=== PATIENT | female | born 1975 | race Caucasian/White ===

== ENCOUNTER 2017-01-13 14:17 | Emergency (ER) | payer OTHER ==
[~2017-01-13] VITALS: Ht 170.2 cm; Wt 85.2 kg
[~2017-01-13 14:17] MED LIST: MTR600X PO; OXYC5TAB PO
[2017-01-13 14:22] VITALS: TEMP 36.7; Ht 170.2 cm; Wt 85.2 kg
--- NOTE | 2017-01-13 15:50 | DIAGNOSTIC IMAGING REPORT ---
CHEST ONE VIEW PORTABLE CLINICAL HISTORY: Atypical chest pain COMPARISON STUDY: No previous studies for comparison. FINDINGS: The cardiac and mediastinal contours are normal. There is no evidence of focal pulmonary consolidation. There is no evidence of failure. No pleural effusions are visualized.[ There are minimal right basilar atelectatic changes. IMPRESSION: No active disease in the chest. Electronically signed by: Tylor Delgado M.D. 01/13/2017 3:48 PM Dictated Date/Time: 01/13/2017 3:48 PM
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
[2017-01-13 16:03] VITALS: O2SAT 96
[2017-01-13 16:18] LABS: BASO % 0.9 %; BASO ABS # 0.06 K/uL (0-0.2); COMPLETE YES; EOS % 3.4 %; HEMATOCRIT 45.6 % (37-47); IG% 0.1 %; LYMPH % 30.5 %; LYMPH ABS # 2.13 K/uL (1.2-3.4); MEAN CELL VOLUME 87.4 fL (80-100); MEAN CORPUSCULAR HEMOGLOBIN 30.8 pg (25-34); MEAN CORPUSCULAR HGB CONC 35.3 g/dl (32-36); MEAN PLATELET VOLUME 9.7 fL (7.4-10.4); MONO % 6.9 %; NEUT % 58.2 %; PLATELET COUNT 296 K/uL (130-400); RED BLOOD COUNT 5.22 M/uL (4.2-5.4); WHITE BLOOD COUNT 6.98 K/uL (4.8-10.8)
[2017-01-13 16:19] LABS: ISTAT CREATININE 0.7 mg/dl (0.6-1.3); ISTAT IONIZED CALCIUM 1.19 mmol/l (1.12-1.32)
[2017-01-13 16:50] LABS: ALT/SGPT 28 U/L (12-78); AST/SGOT 13 U/L (15-37); BLOOD UREA NITROGEN 12 mg/dl (7-18); CALCIUM 8.8 mg/dl (8.5-10.1); CARBON DIOXIDE 29 mmol/L (21-32); CHLORIDE 107 mmol/L (98-107); CREATININE 0.75 mg/dl (0.60-1.20); GLUCOSE 76 mg/dl (70-99); POTASSIUM 3.8 mmol/L (3.5-5.1); SODIUM 141 mmol/L (136-145)
[2017-01-13 16:55] LABS: ALKALINE PHOSPHATASE 81 U/L (45-117); CKMB/CK RATIO 1.2 (0-3.0)
[2017-01-13 17:25] VITALS: BP 141/93; PULSE 57; O2SAT 98
== END 2017-01-13 17:50 | disposition home or self-care (01) ==
LOC: C.EDB 14:18 → C.EDC 17:50
DX: I15.9 Secondary hypertension, unspecified (principal); R00.2 Palpitations; Z90.710 Acquired absence of both cervix and uterus

== ENCOUNTER → 2017-01-16 | Outpatient (CLI) | payer OTHER ==
[2017-01-16 12:32] LABS: MAGNESIUM 2.4 mg/dl (1.8-2.4); THYROID STIMULATING HORMONE 2.75 uIu/ml (0.300-4.500)
== END | disposition home or self-care (01) ==
LOC: C.LAB 10:20
PROVIDERS: ATTEND Physician Assistant
DX: R00.2 Palpitations (principal)

== ENCOUNTER 2018-01-09 16:00 | Emergency (ER) | payer OTHER ==
[~2018-01-09] VITALS: Ht 170.2 cm; Wt 85.0 kg
[2018-01-09 16:15] VITALS: TEMP 36.9; Ht 170.2 cm; Wt 85.0 kg
[2018-01-09] MEDS ORDERED: DiphenhydrAMINE HCL 50 MG/ML VIAL IV STA (17:45)
[2018-01-09] MEDS ORDERED: SODIUM CHLORIDE 0.9% 1000ML 2,000 ML IV STA (17:45)
[2018-01-09] MEDS ORDERED: METOCLOPRAMIDE HCL INJ 5 MG/ML 2 ML VIAL IV STA (17:45)
--- NOTE | 2018-01-09 17:55 | EMERGENCY ROOM VISIT NOTE ---
History Report prepared by Fabiola: Mayte Connell Under the Supervision of: Dr. Donavan Mehta M.D. 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 She reports she went to the chiropractor who adjusted her neck and she felt the headache "instantly. " She reports her headache moves" and yesterday the quality was pressure and throbbing, and today it is stabbing. She also notes she has been having vertigo episodes for the past 2 months. She reports her episodes come very suddenly and last only 1 minute. She states she has had a sinus pressure for the past month which is why she went to the chiropractor. She also states that her and her friends tried the Apley maneuver which alleviated her vertigo episodes but worsened her headache. She denies any urinary symptoms, nausea, vomiting, or chest pain. The patient also states that she has been having difficulty focusing and Dr. Serrano noticed a droop in her left eye. 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 Review of Systems See HPI for pertinent positives and negatives. A total of ten systems were reviewed and were otherwise negative. Past Medical & Surgical Medical Problems: (1) hysterectomy (2) Right shoulder pain Family History Patient reports no known family medical history. Social History Smoking Status: Never Smoker Marital Status: single Housing Status: lives with family Occupation Status: employed Current/Historical Medications Scheduled Acetaminophen (Tylenol), 1,000 MG PO UD Aspirin (Aspirin 81 Low Dose), 1 TAB PO DAILY Fluticasone Propionate (Nasal) (Flonase Allergy Relief), 2 SPRAYS SERGIO UD Allergies Coded Allergies: NO KNOWN DRUG ALLERGIES (Unverified Allergy, Unknown, NONE, 01/09/18) Shellfish Allergy (Unverified Allergy, Unknown, ANAPHYLACTIC, 01/09/18) Physical Exam Vital Signs Date Time Temp Pulse Resp B/P (MAP) Pulse Ox O2 Delivery O2 Flow Rate FiO2 01/09/18 22:09 75 16 132/76 98 01/09/18 20:03 65 16 134/72 97 Room Air 01/09/18 18:50 72 15 141/86 97 Room Air 01/09/18 16:15 36.9 59 20 145/85 98 Room Air Physical Exam GENERAL: Awake, alert, well-appearing, in no distress HENT: Normocephalic, atraumatic. Dry mucus membranes. EYES: Normal conjunctiva. Sclera non-icteric. NECK: Supple. No nuchal rigidity. FROM. No JVD. RESPIRATORY: Clear to auscultation. CARDIAC: Regular rate, normal rhythm. Extremities warm and well perfused. Pulses equal. ABDOMEN: Soft, non-distended. No tenderness to palpation. No rebound or guarding. No masses. RECTAL: Deferred. MUSCULOSKELETAL: Chest examination reveals no tenderness. The back is symmetrical on inspection without obvious abnormality. There is no CVA tenderness to palpation. No joint edema. LOWER EXTREMITIES: Calves are equal size bilaterally and non-tender. No edema. No discoloration. NEURO: Normal sensorium. No sensory or motor deficits noted. Normal cerebellar function with [id number], alternating palms, [id number] SKIN: No rash or jaundice noted. Medical Decision & Procedures ER Provider Diagnostic Interpretation: Radiology results as stated below per my review and radiologist interpretation: ANGIOGRAPHY HEAD COMBO HISTORY: Post trauma post chiropractic manipulation TECHNIQUE: Multiaxial CT images of the head were performed both before and after the intravenous administration of contrast to evaluate the major cerebral vessels. Maximum intensity projection images were also obtained. A dose lowering technique was utilized adhering to the principles of ALARA. COMPARISON: None. FINDINGS: There is no mass, hematoma, midline shift, or acute infarct. Visualized intracranial internal carotid arteries, distal vertebral arteries, and basilar artery are widely patent. 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 IMPRESSION: No significant stenosis, occlusion, or aneurysm within the [place]. Negative CT of the brain The above report was generated using voice recognition software. It may contain grammatical, syntax or spelling errors. Electronically signed by: El Moore M.D. 01/09/2018 7:59 PM ORIGINAL REPORT NECK ANGIO WITH CONTRAST HISTORY: Trauma mental status change TECHNIQUE: Multiaxial CT images of the neck were performed following the intravenous administration of contrast to evaluate the major cervical vessels. Maximum intensity projection images were also obtained. All measurements were calculated based on NASCET criteria. A dose lowering technique was utilized adhering to the principles of ALARA. COMPARISON STUDY: None. FINDINGS: The aortic arch and proximal great vessels are widely patent. There is no significant stenosis, occlusion, or dissection identified within the bilateral common carotid, internal carotid, or vertebral arteries. Mild reversal of the normal cervical curvature suggestive of muscular spasm. Moderate degenerative disc change C5-C6. IMPRESSION: No significant stenosis, occlusion, or dissection identified within the carotid or vertebral arteries. Degenerative disc change C5-C6 of the cervical spine. The above report was generated using voice recognition software. It may contain grammatical, syntax or spelling errors. Electronically signed by: El Moore M.D. 01/09/2018 7:56 PM ADDENDUM Addendum: Following consultation with Dr. Serrano, possibility of a small short segment flow irregularities of the internal carotid arteries on the left as well as right is noted on transaxial images 149 and 150 as well as 151 the left. This is also seen subtly on the right image 153.148, and 147.. Diagnostic considerations include a very shows a small bilateral short segment dissections versus of flow artifact secondary to laminar flow defects. Appropriate prophylactic treatment is suggested with a repeat scan recommended in approximately 2 days as follow-up. This addended report was phoned to Dr. mehta in the emergency room at 8:45 PM. Electronically signed by: El Moore M.D. 01/09/2018 8:59 PM Dictated Date/Time: 01/09/2018 8:56 PM Laboratory Results 01/09/18 18:00 Red Blood Count 5.17, Mean Corpuscular Volume 87.4, Mean Corpuscular Hemoglobin 31.7, Mean Corpuscular Hemoglobin Concent 36.3, Mean Platelet Volume 9.8, Neutrophils (%) (Auto) 55.8, Lymphocytes (%) (Auto) 32.0, Monocytes (%) (Auto) 6.9, Eosinophils (%) (Auto) 4.1, Basophils (%) (Auto) 1.0, Neutrophils # (Auto) 4.64, Lymphocytes # (Auto) 2.66, Monocytes # (Auto) 0.57, Eosinophils # (Auto) 0.34, Basophils # (Auto) 0.08 01/09/18 18:00 Test 01/09/18 18:00 White Blood Count 8.31 K/uL (4.8-10.8) Red Blood Count 5.17 M/uL (4.2-5.4) Hemoglobin 16.4 g/dL (12.0-16.0) Hematocrit 45.2 % (37-47) Mean Corpuscular Volume 87.4 fL (80-100) Mean Corpuscular Hemoglobin 31.7 pg (25-34) Mean Corpuscular Hemoglobin Concent 36.3 g/dl (32-36) Platelet Count 291 K/uL (130-400) Mean Platelet Volume 9.8 fL (7.4-10.4) Neutrophils (%) (Auto) 55.8 % Lymphocytes (%) (Auto) 32.0 % Monocytes (%) (Auto) 6.9 % Eosinophils (%) (Auto) 4.1 % Basophils (%) (Auto) 1.0 % Neutrophils # (Auto) 4.64 K/uL (1.4-6.5) Lymphocytes # (Auto) 2.66 K/uL (1.2-3.4) Monocytes # (Auto) 0.57 K/uL (0.11-0.59) Eosinophils # (Auto) 0.34 K/uL (0-0.5) Basophils # (Auto) 0.08 K/uL (0-0.2) RDW Standard Deviation 40.9 fL (36.4-46.3) RDW Coefficient of Variation 12.7 % (11.5-14.5) Immature Granulocyte % (Auto) 0.2 % Immature Granulocyte # (Auto) 0.02 K/uL (0.00-0.02) Anion Gap 4.0 mmol/L (3-11) Est Creatinine Clear Calc Drug Dose 100.3 ml/min Estimated GFR () 103.1 Estimated GFR (Non- 89.0 BUN/Creatinine Ratio 11.0 (10-20) Calcium Level 9.0 mg/dl (8.5-10.1) Total Bilirubin 0.5 mg/dl (0.2-1) Aspartate Amino Transf (AST/SGOT) 20 U/L (15-37) Alanine Aminotransferase (ALT/SGPT) 39 U/L (12-78) Alkaline Phosphatase 80 U/L (45-117) Total Protein 7.7 gm/dl (6.4-8.2) Albumin 4.2 gm/dl (3.4-5.0) Globulin 3.5 gm/dl (2.5-4.0) Albumin/Globulin Ratio 1.2 (0.9-2) Human Chorionic Gonadotropin, Qual NEG (NEG) Laboratory results reviewed by me Medications Administered Medications (Trade) Dose Ordered Sig/Lilliana Route Start Time Stop Time Status Last Admin Dose Admin Sodium Chloride 2,000 ml @ 999 mls/hr Q2H1M STAT IV 01/09/18 17:45 01/09/18 19:45 DC 01/09/18 18:52 999 MLS/HR Metoclopramide HCl (Reglan Inj) 10 mg NOW STAT IV 01/09/18 17:45 01/09/18 17:53 DC 01/09/18 18:52 10 MG Diphenhydramine HCl (Benadryl Inj) 25 mg NOW STAT IV 01/09/18 17:45 01/09/18 17:53 DC 01/09/18 18:51 25 MG Aspirin (Aspirin Chew) 81 mg NOW STAT PO 01/09/18 21:22 01/09/18 21:23 DC 01/09/18 21:22 81 MG ED Course 1741: The patient was evaluated in room B5. A complete history and physical exam was performed. 0: I reevaluated the patient. Discussed results and discharge instructions: She verbalized understanding and agreement. The patient is ready for discharge. Medical Decision I reviewed the patient's past medical history, medications, and the nursing notes as described above. Differential diagnosis: Etiologies such as migraine headache, meningitis, sinusitis, CO exposure, ICH, SAH, infection, tumor, headache, sinus thrombosis, arterial dissection, as well as others were entertained. The patient is a 42 y/o woman who presents to the emergency department with persistent/constant WU for past week after having a chiropractor manipulation now referred to ED by her pcp for CTA per HPI. On arrival the patient is in NAD , AFVSS. Neuro intact including normal cerebellar function with juydaf-[id number]-givj, alternating palms, [id number]-[id number]. Labs unremarkable. Mild b/l paraspinal ttp. Initial CTA head neck unremarkable however upon further review "possibility of a small short segment flow irregularities of the b/l internal carotid arteries" that could be c/w small dissection vs flow artifact. Recommendations for ppx and repeat imaging. Findings d/w patient and plan for Aspirin tx and repeat imaging on Friday. Patient feeling only marginally improved but wants to be discharged. Findings and plan for follow-up reviewed with patient. Patient agreeable and d/c'd per discharge instructions. Medication Reconcilliation Current Medication List: was personally reviewed by me Blood Pressure Screening Patient's blood pressure: Elevated blood pressure Blood pressure disposition: Elevated BP felt to be situational Impression Primary Impression: Headache Scribe Attestation The scribe's documentation has been prepared under my direction and personally reviewed by me in its entirety. I confirm that the note above accurately reflects all work, treatment, procedures, and medical decision making performed by me. Departure Information Dispostion Home / Self-Care Prescriptions Aspirin (Aspirin 81 Low Dose) 81 Mg Chw 1 TAB PO DAILY for 14 Days, #14 TABS Prov: Donavan Mehta M.D. 01/09/18 Referrals Jean-Paul Arnold M.D. (PCP) Forms HOME CARE DOCUMENTATION FORM, IMPORTANT VISIT INFORMATION Patient Instructions Dissection Carotid Artery About, ED Headache Migraine, ED Headache Tension, My [facility] Additional Instructions Please follow up with your primary care physician in the next 1-3 days for re- evaluation and to repeat your CT scan to assess for change. The cause of your symptoms is unclear at this time. Your CT scan may show evidence of a carotid artery dissection but this could also be artifact. Otherwise, your exam, lab results, and CT scan did not show signs of an emergent condition at this time. Daily baby aspirin as directed. Drink plenty of fluids to ensure hydration. Return to the emergency department for worsening symptoms as described in the accompanying instructions.
[2018-01-09] MEDS ORDERED: OPTIRAY 320 IV PRN (18:00)
[2018-01-09] MEDS ORDERED: TYLOTC500 PO (18:13)
[2018-01-09] MEDS ORDERED: FLUT0.15 NAE (18:13)
[2018-01-09 18:23] LABS: BASO ABS # 0.08 K/uL (0-0.2); EOS % 4.1 %; EOS ABS # 0.34 K/uL (0-0.5); HEMATOCRIT 45.2 % (37-47); HEMOGLOBIN 16.4 g/dL (12.0-16.0); IG# 0.02 K/uL (0.00-0.02); LYMPH ABS # 2.66 K/uL (1.2-3.4); MEAN CELL VOLUME 87.4 fL (80-100); MEAN CORPUSCULAR HEMOGLOBIN 31.7 pg (25-34); MEAN CORPUSCULAR HGB CONC 36.3 g/dl (32-36); MEAN PLATELET VOLUME 9.8 fL (7.4-10.4); MONO % 6.9 %; MONO ABS # 0.57 K/uL (0.11-0.59); NEUT % 55.8 %; NEUT ABS # 4.64 K/uL (1.4-6.5); PLATELET COUNT 291 K/uL (130-400); RED CELL DISTRIBUTION WIDTH CV 12.7 % (11.5-14.5); RED CELL DISTRIBUTION WIDTH SD 40.9 fL (36.4-46.3); WHITE BLOOD COUNT 8.31 K/uL (4.8-10.8)
[2018-01-09 18:37] LABS: ALBUMIN 4.2 gm/dl (3.4-5.0); CREATININE 0.81 mg/dl (0.60-1.20); POTASSIUM 3.9 mmol/L (3.5-5.1)
[2018-01-09 18:39] LABS: TOTAL PROTEIN 7.7 gm/dl (6.4-8.2)
--- NOTE | 2018-01-09 19:57 | DIAGNOSTIC IMAGING REPORT ---
ADDENDUM Addendum: Following consultation with Dr. Serrano, possibility of a small short segment flow irregularities of the internal carotid arteries on the left as well as right is noted on transaxial images 149 and 150 as well as 151 the left. This is also seen subtly on the right image 153.148, and 147.. Diagnostic considerations include a very shows a small bilateral short segment dissections versus of flow artifact secondary to laminar flow defects. Appropriate prophylactic treatment is suggested with a repeat scan recommended in approximately 2 days as follow-up. This addended report was phoned to Dr. mehta in the emergency room at 8:45 PM. Electronically signed by: El Moore M.D. 01/09/2018 8:59 PM Dictated Date/Time: 01/09/2018 8:56 PM ORIGINAL REPORT NECK ANGIO WITH CONTRAST HISTORY: Trauma mental status change TECHNIQUE: Multiaxial CT images of the neck were performed following the intravenous administration of contrast to evaluate the major cervical vessels. Maximum intensity projection images were also obtained. All measurements were calculated based on NASCET criteria. A dose lowering technique was utilized adhering to the principles of ALARA. COMPARISON STUDY: None. FINDINGS: The aortic arch and proximal great vessels are widely patent. There is no significant stenosis, occlusion, or dissection identified within the bilateral common carotid, internal carotid, or vertebral arteries. Mild reversal of the normal cervical curvature suggestive of muscular spasm. Moderate degenerative disc change C5-C6. IMPRESSION: No significant stenosis, occlusion, or dissection identified within the carotid or vertebral arteries. Degenerative disc change C5-C6 of the cervical spine. The above report was generated using voice recognition software. It may contain grammatical, syntax or spelling errors. Electronically signed by: El Moore M.D. 01/09/2018 7:56 PM Dictated Date/Time: 01/09/2018 7:54 PM
--- NOTE | 2018-01-09 20:00 | DIAGNOSTIC IMAGING REPORT ---
ANGIOGRAPHY HEAD COMBO HISTORY: Post trauma post chiropractic manipulation TECHNIQUE: Multiaxial CT images of the head were performed both before and after the intravenous administration of contrast to evaluate the major cerebral vessels. Maximum intensity projection images were also obtained. A dose lowering technique was utilized adhering to the principles of ALARA. COMPARISON: None. FINDINGS: There is no mass, hematoma, midline shift, or acute infarct. Visualized intracranial internal carotid arteries, distal vertebral arteries, and basilar artery are widely patent. There is no significant stenosis, occlusion, or aneurysm seen within the bilateral ACAs, MCAs, or regional education coordinator. IMPRESSION: No significant stenosis, occlusion, or aneurysm within the nulato of [place]. Negative CT of the brain The above report was generated using voice recognition software. It may contain grammatical, syntax or spelling errors. Electronically signed by: El Moore M.D. 01/09/2018 7:59 PM Dictated Date/Time: 01/09/2018 7:56 PM
[2018-01-09] MEDS ORDERED: ASPIRIN 81 MG CHEW PO STA (21:22)
[2018-01-09] MEDS ORDERED: ASPI1CHW12 PO (21:30)
[2018-01-09 22:09] VITALS: BP 132/76; PULSE 75; O2SAT 98
== END 2018-01-09 22:10 | disposition home or self-care (01) ==
LOC: C.EDB 16:02
DX: R51 Headache (principal); Z90.710 Acquired absence of both cervix and uterus; Z91.013 Allergy to seafood; Z79.82 Long term (current) use of aspirin

== ENCOUNTER → 2018-01-13 | Outpatient (CLI) | payer OTHER ==
[~2018-01-13] MED LIST changes: +ASPI1CHW12 PO; +FLUT0.15 NAE; -MTR600X PO; +OPTIRAY 320 IV PRN; -OXYC5TAB PO; +TYLOTC500 PO
--- NOTE | 2018-01-13 07:50 | DIAGNOSTIC IMAGING REPORT ---
NECK ANGIO WITH CONTRAST HISTORY: Dissection mental status change TECHNIQUE: Multiaxial CT images of the neck were performed following the intravenous administration of contrast to evaluate the major cervical vessels. Maximum intensity projection images were also obtained. All measurements were calculated based on NASCET criteria. A dose lowering technique was utilized adhering to the principles of ALARA. COMPARISON STUDY: 01/09/2018 FINDINGS: The aortic arch and proximal great vessels are widely patent. There is no significant stenosis, occlusion, or dissection identified within the bilateral common carotid, internal carotid, or vertebral arteries. Previously described potential small focal dissection of the internal carotid artery appears to be artifactual. The vertebral basilar system is unremarkable. IMPRESSION: No significant stenosis, occlusion, or dissection identified within the carotid or vertebral arteries. The previously described small focal dissection was either artifactual or has resolved post therapy The above report was generated using voice recognition software. It may contain grammatical, syntax or spelling errors. Electronically signed by: El Moore M.D. 01/13/2018 7:48 AM Dictated Date/Time: 01/13/2018 7:37 AM
== END | disposition home or self-care (01) ==
LOC: C.CTS 07:16
PROVIDERS: ATTEND Internal Medicine
DX: I77.71 Dissection of carotid artery (principal)